=== PATIENT | female | born 1950 | race Caucasian/White ===

== ENCOUNTER 2019-07-31 08:50 | Outpatient (CLI) | payer MEDICARE, OTHER ==
[2019-07-31 11:41] LABS: Hemoglobin 11.8 g/dL (12.0-16.0); Mean Corpuscular HGB CONC 31.4 g/dL (32.0-36.0); Mean Corpuscular Hemoglobin 29.4 pg (27.0-31.0); Mean Corpuscular Volume 93.5 fL (78.0-98.0); Mean Platelet Volume 7.7 fL (7.4-10.4); Platelet Count 290 thou/uL (130-400); RBC Distribution Width 14.9 % (11.5-14.5); Red Blood Cell (RBC) Count 4.01 mill/uL (4.20-5.40); White Blood Cell (WBC) Count 12.3 thou/uL (4.8-10.8)
[2019-07-31 11:49] LABS: PTT 30.1 SEC (22.9-36.1)
[2019-07-31 12:06] LABS: Anion Gap 15 mmol/L (10-20); BUN (Urea Nitrogen) 13 mg/dL (9.8-20.1); Calc. Creatinine Clearance 0 mL/min (70-130); Calcium 10.5 mg/dL (7.8-10.44); Carbon Dioxide 32 mmol/L (23-31); Chloride 99 mmol/L (98-107); Estimated GFR-MDRD 64; Glucose 112 mg/dL (80-115); Potassium 3.4 mmol/L (3.5-5.1); Sodium 143 mmol/L (136-145)
== END 2019-07-31 08:51 | disposition home or self-care (01) ==
LOC: LABBT 08:50
PROVIDERS: ATTEND Urology
DX: Z01.818 Encounter for other preprocedural examination (principal); N20.1 Calculus of ureter
CPT/HCPCS: 80048; 85027; 85610; 85730; 93005; 93010

== ENCOUNTER 2019-08-07 07:33 | Day surgery (SDC) | payer MEDICARE, OTHER ==
[2019-07-31 09:00] VITALS: BMI 33.9
[2019-08-07] MEDS ORDERED: Iothalamate Meglumine 60% 50 ML VIAL FS ONE (07:57)
[2019-08-07] MEDS ORDERED: Levofloxacin 500 mg/D5W 100 ml Premix Bag ONE (08:12)
[2019-08-07] MEDS ORDERED: cefTRIAXone\\ROCEPHIN 2 GM VIAL ONE (08:12)
[2019-08-07] MEDS ORDERED: Sodium Chloride 0.9% 100 ML ONE (08:12)
[2019-08-07] MEDS ORDERED: Fentanyl 100 MCG/2 ML VIAL ONE ×2 (09:12→10:49)
--- NOTE | 2019-08-07 10:55 | OP ---
DATE OF PROCEDURE: 08/07/2019 PREOPERATIVE DIAGNOSES: 1. A 68-year-old female with history of morbid obesity, chronic obstructive pulmonary disease, coronary artery disease with large right distal ureteral calculi 10 mm. 2. History of Escherichia coli urosepsis, status post stent. POSTOPERATIVE DIAGNOSES: 1. A 68-year-old female with history of morbid obesity, chronic obstructive pulmonary disease, coronary artery disease with large right distal ureteral calculi 10 mm. 2. History of Escherichia coli urosepsis, status post stent. PROCEDURES PERFORMED: Cystoscopy, right retrograde pyelogram, 6 x 26 double-J ureteral stent exchange with distal tail in situ, rigid ureteroscopy, laser lithotripsy, basket extraction of stone fragments, retrograde pyelogram. ANESTHESIA: LMA general. COMPLICATIONS: None apparent. DISPOSITION: To recovery room in stable condition extubated. SPECIMEN: Stone for chemical analysis. INDICATIONS FOR THE PROCEDURE AND HISTORY: Ms. Ojeda is a pleasant 68-year-old female with history of morbid obesity, severe COPD, CAD, presented to the emergency room due to right flank pain. She presented with Escherichia coli urosepsis with white count of 25,000, large right distal ureteral calculi 10 mm at the level of S4. She did undergo ureteral stent placement and subsequently her fever, leukocytosis resolved with negative followup urine culture and blood culture. Her case has been discussed with engagement mgr of Anesthesia, given her presenting issues, with risk of recurrent infection, she has been cleared to proceed with ureteroscopy and laser lithotripsy. Cardiopulmonary clearance is in chart. Risks and complications and indications reviewed including, but not limited to, bleeding, pain, infection, injury to adjacent organs, urosepsis, possible secondary procedure, possible ureteral and renal kidney injury. Indications for the surgery reviewed and she desired to proceed. DESCRIPTION OF PROCEDURE: After an informed consent was signed, the patient was taken to the operating room, placed in a dorsal lithotomy position with the genital area prepped and draped in the usual surgical sterile fashion. A 21-Slovak cystoscope was utilized for cystoscopy. Broad-spectrum antibiotics were provided preoperatively. Upon entering the bladder, the previously placed ureteral stent was visualized and this was removed to the level of the meatus with a grasping forceps. The stone was difficult to see on fluoroscopy as she does have morbid obesity. A 0.035 Sensor wire was placed into the right upper pole through the ureteral stent and the stent subsequently removed. A retrograde pyelogram was gently performed opacifying the collecting system. There was a subtle filling defect at the level of S3-S4 consistent with a large stone nidus. At this time, with the wire secured , we performed the rigid ureteroscopy. The stone was easily visualized, using 365 micron laser fiber at the setting of 1.0 joules, we laser lithotripsied the stone into multiple tiny pieces. Basket extraction was performed atraumatically and all stone fragments were evacuated with endoscopic clearance. Larger nidus that was retrieved was sent for chemical analysis. A 6 x 26 double-J ureteral stent was passed without difficulty over the working wire and the wire subsequently removed. Good coil was seen in the kidney and bladder and bladder was completely emptied. She tolerated the procedure well, extubated uneventfully. Intraoperative time was minimal. She tolerated the procedure well and transported to the recovery room in stable condition and will be discharged back to [facility]. Written prescription for tramadol 50 mg 1 to 2 p.o. q.6 hours p.r.n., Levaquin 750 mg which she is to continue until followup appointment, Azo p.r.n., VESIcare 5 mg for bladder spasms, she did request Nocona in the preop area as she has persistent stent discomfort, inadequately controlled with tramadol. Therefore, I did provide Nocona 5/325 # 30 electronically sent. Instructions provided to hold Plavix for 24- 48 hours. If urine output is relatively clear, may resume her Plavix. appointment next for cysto, stent pull under local provided. Job ID: [id number] [facility]
[2019-08-07] MEDS ORDERED: Phenazopyridine HCl 97.5 MG TABLET ONE (10:57)
[2019-08-07] MEDS ORDERED: Oxybutynin 5 MG TAB ONE (10:57)
[2019-08-07] MEDS ORDERED: Lidocaine 1% PF 5 ML VIAL ONE (11:05)
[2019-08-07] MEDS ORDERED: PROPOFOL 200 MG/20 ML VIAL ONE (11:05)
[2019-08-07] MEDS ORDERED: Ondansetron PF 4 MG/2 ML Vial ONE (11:05)
--- NOTE | 2019-08-07 11:17 | RAD ---
RETROGRADE IVP: Date: 08/07/2019 A single image is obtained. INDICATION: Intraoperative imaging during ureteral stent placement and retrograde IVP procedure. FINDINGS/IMPRESSION: A single image shows partial opacification of the upper collecting structures on the right. A double pigtail right ureteral stent is noted in place. POS: [facility]
== END 2019-08-07 15:30 | disposition home or self-care (01) ==
LOC: SDC 07:33
PROVIDERS: ATTEND Urology
PROC: 0TC68ZZ Extirpation of Matter from Right Ureter, Via Natural or Artificial Opening Endoscopic (ICD-10-PCS; principal; 2019-08-07)
PROC: 0T768DZ Dilation of Right Ureter with Intraluminal Device, Via Natural or Artificial Opening Endoscopic (ICD-10-PCS; 2019-08-07)
PROC: BT1DYZZ Fluoroscopy of Right Kidney, Ureter and Bladder using Other Contrast (ICD-10-PCS; 2019-08-07)
DX: N20.1 Calculus of ureter (principal); I25.10 Atherosclerotic heart disease of native coronary artery without angina pectoris; F41.9 Anxiety disorder, unspecified; E78.5 Hyperlipidemia, unspecified; F32.9 Major depressive disorder, single episode, unspecified; G47.00 Insomnia, unspecified; J44.1 Chronic obstructive pulmonary disease with (acute) exacerbation; R35.0 Frequency of micturition; A41.51 Sepsis due to Escherichia coli [E. coli]; G89.29 Other chronic pain; I11.9 Hypertensive heart disease without heart failure; E66.01 Morbid (severe) obesity due to excess calories; I27.20 Pulmonary hypertension, unspecified; E11.36 Type 2 diabetes mellitus with diabetic cataract; K21.9 Gastro-esophageal reflux disease without esophagitis; Z98.890 Other specified postprocedural states; Z79.899 Other long term (current) drug therapy; Z79.02 Long term (current) use of antithrombotics/antiplatelets; Z79.2 Long term (current) use of antibiotics; Z79.84 Long term (current) use of oral hypoglycemic drugs; Z95.1 Presence of aortocoronary bypass graft; Z87.891 Personal history of nicotine dependence; Z88.5 Allergy status to narcotic agent; Z99.81 Dependence on supplemental oxygen; Z68.33 Body mass index [BMI] 33.0-33.9, adult
CPT/HCPCS: 52356; 74420; 82365; 88300; C1758; C1769; J0696; J1956; J2001; J2405; J2704; J3010; J3490; J7620

== ENCOUNTER 2019-10-31 11:53 | Outpatient (CLI) | payer MEDICARE ==
--- NOTE | 2019-10-31 12:57 | CT ---
CT ABDOMEN AND PELVIS WITHOUT CONTRAST: Date: 10/31/2019 PROVIDED CLINICAL HISTORY: Back pain and flank pain. FINDINGS: No comparisons. The visualized lung bases are free of significant opacity. The solid abdominal organs and suboptimally evaluated in the absence of IV contrast material, but dem onstrate an unremarkable unenhanced CT appearance. There is no evidence for urinary tract calculi or hydronephrosis. There is no bowel dilatation, inflammatory fat stranding, free fluid, or lymph node enlargement appar ent. Sigmoid colonic diverticulosis without CT evidence for diverticulitis. Extensive vascular calcif ication. No evidence for appendicitis. The gallbladder is surgically absent. The osseous structures demonstrate no concerning lytic or blastic lesions. Degenerative changes are s een involving the spine. IMPRESSION: No evidence for urinary tract calculi or hydronephrosis. POS: [facility]
== END 2019-10-31 11:54 | disposition home or self-care (01) ==
LOC: CT 11:53
PROVIDERS: ATTEND Urology
DX: R10.9 Unspecified abdominal pain (principal); R30.0 Dysuria; Z87.442 Personal history of urinary calculi
CPT/HCPCS: 74176; 81001; 87086